=== PATIENT | female | born 1930 | race Caucasian/White ===

== ENCOUNTER → 2017-03-17 | Outpatient (CLI) | payer OTHER, MEDICARE | LOC: FIMAGING 10:02 | PROVIDERS: ATTEND Internal Medicine | DX: R09.81 Nasal congestion (principal); R43.0 Anosmia; J01.00 Acute maxillary sinusitis, unspecified ==

== ENCOUNTER 2017-06-19 11:11 | Day surgery (SDC) | payer OTHER, MEDICARE ==
[~2017-06-19 11:11] MED LIST: LIDOCAINE 1% 2 ML INJ ID PRN; LR 1,000 ML IV ONE
[2017-06-19] MEDS ORDERED: ROPIVACAINE HCL 150 MG/30 ML INJ ONE (11:20)
[2017-06-19] MEDS ORDERED: BUPIVACAINE 0.5% 30 ML SDV ONE (11:20)
[2017-06-19] MEDS ORDERED: DEXAMETHASONE 4 MG/ML VIAL ONE (11:20)
[2017-06-19] MEDS ORDERED: POLYMYXIN B SULFATE 500,000 UNIT/10 ML SYR IRR ONE (11:21)
[2017-06-19] MEDS ORDERED: BACITRACIN 50,000 UNITS/10 ML SYR IRR ONE (11:21)
[2017-06-19 11:45] VITALS: PULSE 74
--- NOTE | 2017-06-19 12:08 | PDHPUP ---
History & Physical Update H&P update statement: This history and physical update is based on an assessment of the patient which was completed after admission or registration (within 24 hours), but prior to the surgery/procedure.
--- NOTE | 2017-06-19 12:18 | PDANEPAE ---
ANE History of Present Illness R bone tumor excision ANE Past Medical History - Cardiovascular History Hx Hypertension: Yes Hx Arrhythmias: No Hx Chest Pain: No Hx Coronary Artery / Peripheral Vascular Disease: No Hx CHF / Valvular Disease: No Hx Palpitations: No - Pulmonary History Hx COPD: No Hx Asthma/Reactive Airway Disease: No Hx Recent Upper Respiratory Infection: No Hx Oxygen in Use at Home: No Hx Sleep Apnea: No Sleep Apnea Screening Result - Last Documented: Negative - Neurologic History Hx Cerebrovascular Accident: No Hx Seizures: No Hx Dementia: No - Endocrine History Hx Diabetes: No - Renal History Hx Renal Disorders: No - Liver History Hx Hepatic Disorders: No - Neurological & Psychiatric Hx Hx Neurological and Psychiatric Disorders: No - Cancer History Hx Cancer: No - Congenital Disorder History Hx Congenital Disorders: No - GI History Hx Gastrointestinal Disorders: No - Other Health History Other Health History: CHRONIC SINUSITIS - Chronic Pain History Chronic Pain: Yes (RT FOOT) - Surgical History Prior Surgeries: CHANDAN CATARACT. RT KNEE SCOPE. APPENDECTOMY ANE Review of Systems Review of systems is: negative Review of Systems: - Exercise capacity Exercise capacity: >=4 METS METS (RN): 4 METS ANE Patient History - Allergies Allergies/Adverse Reactions: No Known Allergies Allergy (Unverified 03/14/13 11:17) - Home Medications Home medications: home medication list seen and reviewed Home Medications: Lisinopril [Zestril 20 mg (RX)] 20 mg PO DAILY06 03/14/13 [Last Taken 06/19/17] Simvastatin 40 mg PO DAILY AT 6PM 03/14/13 [Last Taken 06/18/17] ALENDRONATE SODIUM ONCE 06/15/17 [Last Taken 06/15/17] Herbal Drugs DAILY 06/15/17 [Last Taken 06/16/17] - NPO status NPO Since - Liquids (Date): 06/19/17 NPO Since - Liquids (Time): 09:00 NPO Since - Solids (Date): 06/18/17 NPO Since - Solids (Time): 18:30 - Anes Hx Anes Hx: no prior problems - Smoking Hx Smoking Status: Never smoked - Family Anes Hx Family Anes Hx: none ANE Labs/Vital Signs - Vital Signs Blood Pressure: 135/67 Heart Rate: 74 Respiratory Rate: 14 O2 Sat (%): 95 Height: 154.94 cm Weight: 51.71 kg ANE Physical Exam - Airway Neck exam: FROM Mallampati Score: Class 1 Mouth exam: normal dental/mouth exam - Pulmonary Pulmonary: no respiratory distress - Cardiovascular Cardiovascular: regular rate and rhythym - ASA Status ASA Status: II ANE Anesthesia Plan Total IV Anesthesia: Yes
[2017-06-19] MEDS ORDERED: LIDOCAINE 2% 100 MG/5 ML SYR ONE (12:43)
[2017-06-19] MEDS ORDERED: PROPOFOL/EMULSION 500 MG/50 ML BOTTLE IV ONE (12:43)
[2017-06-19] MEDS ORDERED: LIDOCAINE 1% 300 MG/30 ML SDV ONE (12:44)
--- NOTE | 2017-06-19 13:39 | POSTOPPROG ---
Post Op Note Date of Operation: 06/19/17 Surgeon: Edwina Villeda Miller Kiln Dried Salt: NONE Anesthesiologist: DR. HOBBS Pre-op Diagnosis: BONE TUMOR RIGHT HALLUX Post-op Diagnosis: BONE TUMOR RIGHT HALLUX Indication: BONE NEOPLASM ON XRAY, PROGRESSIVE REDNESS/ENLARGEMENT OF TOE Procedure: EXCISION OF BONE LESION/NEOPLASM DISTAL TIP HALLUX Findings: BONE MASS Inf/Abcess present in the surg proc area at time of surgery?: No Depth: Deep Incisional (Fascial) EBL: Minimal (NONE)
[2017-06-19] MEDS ORDERED: HYDROCODONE/APAP 5/325 TAB PO PRN (13:42)
[2017-06-19] MEDS ORDERED: ONDANSETRON 4 MG/2 ML VIAL IVP PRN (13:42)
[2017-06-19] MEDS ORDERED: fentaNYL 100 MCG/2 ML INJ IVP PRN (13:42)
[2017-06-19] MEDS ORDERED: OXYCODONE/APAP 5/325 TAB PO PRN (13:42)
[2017-06-19] MEDS ORDERED: ACETAMINOPHEN 500 MG TAB PO PRN (13:42)
[2017-06-19] MEDS ORDERED: DEXAMETHASONE 4 MG/ML VIAL IVP PRN (13:42)
[2017-06-19] MEDS ORDERED: NALOXONE HCL 0.4 MG/ML INJ IVP PRN (13:42)
[2017-06-19] MEDS ORDERED: HYDROmorphONE/DILAUDID 1 MG/ML INJ IVP PRN (13:42)
--- NOTE | 2017-06-19 13:42 | POSTANESTH ---
Post Anesthetic Evaluation Cardiovascular Status: Normal, Stable, Similar to Pre-Op Cond Respiratory Status: Normal, Stable, Similar to Pre-op Cond. Level of Consciousness/Mental Status: Can Participate in Eval, Mildly Sleepy, Arousable Pain Control: Adequate, Prn Tx Ordered Nausea/Vomiting Control: Adequate, Prn Tx Ordered Complications Possibly Related to Anesthesia: None Noted
[2017-06-19 14:33] VITALS: RESP 20; O2SAT 94
[2017-06-19 14:52] VITALS: BP 121/58
[2017-06-19 14:55] VITALS: TEMP 97.3
--- NOTE | 2017-06-19 20:37 | GOP ---
[f rep st] OPERATIVE REPORT DATE OF OPERATION: 06/19/2017 SURGEON: Edwina Villeda DPM ANESTHESIA: MAC. ANESTHESIOLOGIST: Panfilo Parker MD. PREOPERATIVE DIAGNOSIS: Bone tumor mass, distal aspect right hallux. POSTOPERATIVE DIAGNOSIS: Bone tumor mass, distal aspect right hallux. PROCEDURE PERFORMED: Excision of bone tumor/mass, right hallux. FINDINGS: INDICATIONS: Progressive redness and development of extra layer of skin on the tip of her right big toe for now 2 months' duration, denying any history of injury. Relating her shoes are fitting fine. X-rays demonstrating a sclerotic mass at the distal aspect of the distal phalanx. Findings unusual for her age. Clinical exam reveals localized erythema and subtle hyperkeratosis on the tip of the cedeno llux. Recommending excisional biopsy. DESCRIPTION OF PROCEDURE: Patient was brought into the operating room, placed on the operating table in supine position. Intravenous sedation administered by the anesthesiologist. A hallux digital bl ock performed utilizing 6 cc of 1:1 mix of 1% lidocaine plain and ropivacaine plain. The lower extre mity was prepped and draped in the usual sterile manner. After the limb had been elevated, it was ex sanguinated with an Esmarch bandage and tourniquet inflated to 230 mmHg and the procedure was begun. Webril padding utilized under the ankle cuff. A linear incision was created around distal tip of th e hallux in the area of the erythema and prominence. Incision was carefully deepened, soft tissue re flected off the distal phalanx, bone was noted to be firm, somewhat sclerotic. There was no drainage . No signs of infection. Utilizing a sagittal saw, the bone was resected. C-arm pictures taken to verify complete excision of the sclerotic mass. Site was copiously flushed with bacitracin irrigatio n solution. The tourniquet released. Normal hyperemic response noted to all digits. Skin closed. Subcutaneous closure with 4-0 Monocryl. The skin was closed with 4-0 Prolene in a horizontal mattres s and simple interrupted suture fashion. Dressings included Xeroform, 4x4s, reinforced with Mansi ta pe and an Juanjose bandage. The patient tolerated the procedure and anesthesia well and left the operatin g room with vital signs stable and vascular status intact to all digits. In postoperative recovery, patient was doing well. She was fitted with an ice bag. Her daughter will be providing her transpor tation home. She was fitted with a postoperative shoe. The specimen sent to Pathology for gross and microscopic examination, rule out metastasis. /[id number]/MODL
== END 2017-06-19 15:05 | disposition home or self-care (01) ==
LOC: FSGY 11:11
PROVIDERS: ATTEND Podiatrist
PROC: 0QBQ0ZZ Excision of Right Toe Phalanx, Open Approach (ICD-10-PCS; principal; 2017-06-19 12:30)
DX: D16.31 Benign neoplasm of short bones of right lower limb (principal)
CPT/HCPCS: J0690; J1100; J2001; J2704; J2795

== ENCOUNTER → 2019-01-11 | Outpatient (CLI) | payer OTHER, MEDICARE | LOC: FIMAGING 09:27 ==